=== PATIENT | male | born 1930 | race Hispanic/Latino ===

== ENCOUNTER 2017-07-27 10:20 | Observation (INO) | payer OTHER, MEDICARE ==
[~2017-07-27] VITALS: Ht 185.4 cm; Wt 79.2 kg
[2017-07-27 12:10] LABS: BASOPHILS % (AUTO) 0.2 % (0.0-5.0); EOSINOPHILS % (AUTO) 1.4 % (0.0-8.0); HEMATOCRIT 36.2 % (42-54); LYMPHOCYTES % (AUTO) 23.7 % (21.0-51.0); MEAN CORPUSCULAR HEMOGLOBIN 30.5 pg (27.0-33.0); MEAN CORPUSCULAR HGB CONC 33.5 g/dL (32.0-36.0); MEAN CORPUSCULAR VOLUME 90.9 fL (79-99); MONOCYTES % (AUTO) 6.3 % (3.0-13.0); NEUTROPHILS % (AUTO) 68.4 % (40.0-77.0); PLATELET COUNT (AUTO) 225 K/uL (130-400); RED BLOOD CELL COUNT(AUTO) 3.98 MIL/uL (4.50-6.20); RED CELL DISTRIBUTION WIDTH 14.4 % (11.0-15.5); WHITE BLOOD COUNT (AUTO) 8.5 K/uL (4.8-10.8)
[2017-07-27 12:13] LABS: APPEARANCE,URINE Clear (CLEAR); BILIRUBIN,URINE Negative (NEGATIVE); COLOR,URINE Yellow (YELLOW); GLUCOSE, URINE (UA) Negative (NEGATIVE); KETONES,URINE Negative (NEGATIVE); LEUKOCYTE ESTERASE ,URINE Negative (NEGATIVE); NITRATE,URINE Negative (NEGATIVE); OCCULT BLOOD,URINE Negative (NEGATIVE); PROTEIN,URINE Negative (NEGATIVE)
[2017-07-27 12:16] LABS: CREATININE 1.2 mg/dL (0.5-1.5); POTASSIUM 4.6 mmol/L (3.5-5.1)
[2017-07-27 12:21] LABS: ALBUMIN 3.4 g/dL (3.5-5.0); BILIRUBIN,TOTAL 0.3 mg/dL (0.2-1.0); TOTAL PROTEIN, SERUM 7.5 g/dL (6.0-8.3)
[2017-07-27] MEDS ORDERED: SODIUM CHLORIDE 0.9% 1000ML 1,000 ML IV ONE (17:12)
[2017-07-27] MEDS ORDERED: METRONIDAZOLE 500MG/100ML BAG 100 ML ONE (17:12)
[2017-07-27 17:54] VITALS: BP 140/69
[2017-07-27] MEDS ORDERED: BACL10TA PO (18:18)
[2017-07-27] MEDS ORDERED: NAPR500T6 PO (18:18)
[2017-07-27] MEDS ORDERED: LISI10TA7 PO (18:18)
[2017-07-27] MEDS ORDERED: FERR325T22 PO (18:18)
[2017-07-27] MEDS ORDERED: GABA300S PO (18:18)
[2017-07-27] MEDS ORDERED: METF850T2 PO (18:18)
[2017-07-27] MEDS ORDERED: ATOR40TA69 PO (18:18)
[2017-07-27 20:00] VITALS: BP 104/65
[2017-07-27] MEDS ORDERED: MORPHINE SULFATE 2 MG/ML 1ML SYG IVP PRN (20:00)
[2017-07-27] MEDS ORDERED: ONDANSETRON HCL 4 MG/2 ML VIAL IVP PRN (20:00)
[2017-07-27] MEDS: SODIUM CHLORIDE 0.9% 1000ML 1,000 ML IV SCH (20:00)
[2017-07-27] MEDS: SIMETHICONE 80 MG TAB.CHEW PO SCH (20:34)
[2017-07-27] MEDS ORDERED: LIDOCAINE HCL-MPF 1% 2ML VIAL IVP PRN (22:15)
[2017-07-27] MEDS ORDERED: POTASSIUM CHLORIDE 20MEQ/100ML 100 ML IV PRN (22:15)
[2017-07-27] MEDS ORDERED: POTASSIUM CHLORIDE 10% ELIXIR 20 MEQ/15 ML UDCUP PO PRN (22:15)
[2017-07-27] MEDS ORDERED: POTASSIUM CHLORIDE 20 MEQ ERTAB PO PRN (22:15)
[2017-07-28] VITALS: BP 97/56
[2017-07-28] MEDS: METRONIDAZOLE 500MG/100ML BAG 100 ML IV SCH ×3 (01:23→17:54)
[2017-07-28 04:00] VITALS: BP 120/69
[2017-07-28 05:55] LABS: POTASSIUM 3.7 mmol/L (3.5-5.1); THYROID STIMULATING HORMONE 2.98 uIU/mL (0.36-3.74)
[2017-07-28] MEDS: INSULIN HUMULIN R 100 UNIT/ML 3ML SQ SCH ×4 (07:30→21:00)
[2017-07-28 08:00] VITALS: BP 125/68
[2017-07-28] MEDS: SIMETHICONE 80 MG TAB.CHEW PO SCH ×3 (09:46→20:35)
[2017-07-28] MEDS: SODIUM CHLORIDE 0.9% 1000ML 1,000 ML IV SCH (09:46)
[2017-07-28] MEDS ORDERED: BACLOFEN 10 MG TABLET PO PRN (10:30)
[2017-07-28 12:00] VITALS: BP 148/72
[2017-07-28 16:00] VITALS: BP 151/77
[2017-07-28] MEDS: METFORMIN HCL 850 MG TABLET PO SCH (17:55)
[2017-07-28] MEDS: FERROUS SULFATE 325 MG TABLET.DR PO SCH (17:55)
[2017-07-28 20:00] VITALS: BP 147/86
[2017-07-28] MEDS: GUAIFENESIN-DM 200/20 MG 10 ML PO PRN (20:34)
[2017-07-28] MEDS ORDERED: ATORVASTATIN CALCIUM 40 MG TABLET PO SCH (21:00)
[2017-07-28] MEDS ORDERED: GABAPENTIN 300 MG CAPSULE PO SCH (21:00)
[2017-07-29] VITALS: BP 153/77
[2017-07-29] MEDS: METRONIDAZOLE 500MG/100ML BAG 100 ML IV SCH ×2 (02:07→10:42)
[2017-07-29 04:00] VITALS: BP 142/74
[2017-07-29 05:42] LABS: CREATININE 1.1 mg/dL (0.5-1.5); POTASSIUM 3.9 mmol/L (3.5-5.1)
[2017-07-29] MEDS: INSULIN HUMULIN R 100 UNIT/ML 3ML SQ SCH (07:30)
[2017-07-29 08:00] VITALS: BP 132/65
[2017-07-29] MEDS: METFORMIN HCL 850 MG TABLET PO SCH (10:42)
[2017-07-29] MEDS: FERROUS SULFATE 325 MG TABLET.DR PO SCH (10:43)
[2017-07-29] MEDS: SIMETHICONE 80 MG TAB.CHEW PO SCH (10:43)
[2017-07-29] MEDS: GUAIFENESIN-DM 200/20 MG 10 ML PO PRN (10:43)
[2017-07-29 11:51] VITALS: BP 136/84
== END 2017-07-29 14:10 | disposition home or self-care (01) ==
LOC: EDH 10:20 → EDHIP 15:50 → 4CH 17:32
PROVIDERS: ADMIT Internal Medicine; ATTEND Internal Medicine
DX: K52.9 Noninfective gastroenteritis and colitis, unspecified (principal); E86.0 Dehydration; I10 Essential (primary) hypertension; E78.5 Hyperlipidemia, unspecified; E11.9 Type 2 diabetes mellitus without complications
CPT/HCPCS: 36415 ×3; 74018 ×2; 80048 ×2; 80053; 81003; 82270; 82948 ×7; 84443; 85025; 87046; 87205; 87324; 96365; 96366 ×2; 99285; G0378 ×46; J3490 ×4; J7030